=== PATIENT | female | born 1965 | race Caucasian/White ===

== ENCOUNTER → 2016-10-22 | Outpatient (CLI) | payer OTHER ==
[~2016-10-22] VITALS: Ht 162.6 cm; Wt 90.7 kg
[~2016-10-22] MED LIST: ADVAIR 250/501 DISK IH; ADVIL200 MG PO; AMLODIPINE BES2.5 MG PO; ATENOLOL50 MG PO; BENADRYL50 MG PO; COLACE100 MG PO; CYCLOBENZAPRINE10 MG PO; DOCUSATE SODIU100 MG PO; DOLOPHINE HCL5 MG PO; EFFEXOR75 MG PO; FERROUS SULFAT325 MG PO; FLEXERIL10 MG PO; HYDROCHLOROTH12.5 M3 PO; IBUPROFEN800 MG PO; LASIX20 MG PO; LOSARTAN POTASS25 MG PO; MEGESTROL ACETA20 MG PO; METRONIDAZOLE500 MG PO; MOTRIN800 MG PO; NAPROSYN500 MG PO; NAPROXEN500 MG PO; NEURONTIN100 MG PO; NORCO 10/3251 TABLET PO; ONMEL200 MG PO; PANTOPRAZOLE SO40 MG PO; PAROXETINE HCL20 MG PO; PAXIL20 MG PO; PERCOCET 5/31 TABLET PO; PREDNISONE10 MG PO; PREDNISONE20 MG PO; PROTONIX40 MG PO; TENORMIN25 MG PO; TRAMADOL HCL50 MG PO; TRAZODONE HCL50 MG PO; TYLENOL ARTHRI650 MG PO; VOLTAREN75 MG PO
== END | disposition home or self-care (01) ==
LOC: AMB 11:46
PROC: 0DBE8ZZ Excision of Large Intestine, Via Natural or Artificial Opening Endoscopic (ICD-10-PCS; principal; 2016-10-22)
DX: Z12.11 Encounter for screening for malignant neoplasm of colon (principal); D12.0 Benign neoplasm of cecum; D17.5 Benign lipomatous neoplasm of intra-abdominal organs; K52.9 Noninfective gastroenteritis and colitis, unspecified; I10 Essential (primary) hypertension; M19.90 Unspecified osteoarthritis, unspecified site; K21.9 Gastro-esophageal reflux disease without esophagitis; R01.1 Cardiac murmur, unspecified
CPT/HCPCS: 88305; J2250; J3010